=== PATIENT | male | born 1965 | race Caucasian/White ===

== ENCOUNTER 2016-06-06 10:13 | Emergency (ER) | payer OTHER ==
[~2016-06-06 10:13] MED LIST: LEVO250T PO; ULTR50TA PO; ZEST20TA8 PO; ZOFR4SOL PO; [UNRECOGNIZED DRUG - OTHER] OR
[2016-06-06] MEDS ORDERED: ONDANSETRON 4MG/2ML VIAL (J2405) As Ordered ONE (10:39)
[2016-06-06] MEDS ORDERED: MORPHINE 4 MG/ML 1ML SYRINGE As Ordered ONE (10:39)
[2016-06-06 10:51] LABS: BASO % 0.5 % (0.0-1.0); EOS # 0.1 K/mm3 (0.0-0.50); EOS % 1.1 % (0.0-3.0); LARGE UNSTAINED CELL # 0.2 K/mm3 (0.0-0.4); LARGE UNSTAINED CELL % 2.5 % (0.0-4.0); LYMPH # 1.2 K/mm3 (1.5-4.5); MEAN CORPUSCULAR HEMOGLOBIN 35.1 pg (27.0-33.0); MEAN CORPUSCULAR HGB CONC 35.2 g/dl (32.0-36.5); MEAN CORPUSCULAR VOLUME 99.9 fl (80.0-96.0); MONO # 0.7 K/mm3 (0.0-0.8); MONO % 8.8 % (0.0-5.0); NEUTROPHILS # 5.2 K/mm3 (1.8-7.7); PLATELET COUNT, AUTOMATED 378 k/mm3 (150-450); RED CELL DISTRIBUTION WIDTH 12.2 % (11.5-14.5); WHITE BLOOD COUNT 7.3 K/mm3 (4.0-10.0)
[2016-06-06 11:07] LABS: ALBUMIN/GLOBULIN RATIO 1.11 (1.00-1.93); ALKALINE PHOSPHATASE 92 U/L (45-117); ALT/SGPT 54 U/L (12-78); AMYLASE 70 U/L (25-115); ANION GAP 10 MEQ/L (8-16); AST/SGOT 52 U/L (15-37); BILIRUBIN,DIRECT < 0.1 MG/DL (0.0-0.2); BILIRUBIN,TOTAL 0.2 MG/DL (0.2-1.0); BLOOD UREA NITROGEN 6 MG/DL (7-18); CALCIUM LEVEL 8.9 MG/DL (8.5-10.1); CARBON DIOXIDE LEVEL 25 MEQ/L (21-32); CHLORIDE LEVEL 99 MEQ/L (98-107); CREATININE FOR GFR 0.78 MG/DL (0.70-1.30); GLOMERULAR FILTRATION RATE > 60.0 (>56); GLUCOSE, FASTING 88 MG/DL (70-105); SODIUM LEVEL 134 MEQ/L (136-145); TOTAL PROTEIN 7.6 GM/DL (6.4-8.2)
--- NOTE | 2016-06-06 13:23 | EDDOCDS ---
Physician Documentation [facility] Name: Jan Clayton Age: 50 yrs Sex: Male : 1965 Arrival Date: 06/06/2016 Time: 10:13 Bed I5 / M5 Private MD: Vincenzo Ramos Disposition: 06/06/16 13:03 Discharged to Home/Self Care. Impression: Other chest pain - Musculoskeletal Chest Pain, Right side, Chronic obstructive pulmonary disease, unspecified - on Chest X-ray today. - Condition is Stable. - Discharge Instructions: Chronic Obstructive Pulmonary Disease, Musculoskeletal Pain. - Prescriptions for Zanaflex 4 mg Oral Tablet - take 1 tablet by ORAL route every 8 hours As needed Will cause drowsiness, do not take while driving/operating heavy machinery.; 20 tablet. Tramadol 50 mg Oral Tablet - take 0.5 tablet by ORAL route 4 times per day MDD: 2 tabs; 10 tablet. Albuterol Sulfate 90 mcg/actuation Inhalation HFA Aerosol Inhaler - inhale 2 puff by INHALATION route every 4 hours As needed; 1 Inhaler. - Medication Reconciliation, Local Pharmacy Hours form. - Follow up: Private Physician; When: 1 - 2 days; Reason: Recheck today's complaints, Continuance of care. Follow up: Emergency Department; Reason: Worsening of conditions. - Problem is new. - Symptoms have improved. Historical: - Allergies: no known allergies; - Home Meds: 1. none - PMHx: Hypertension; chronic abdominal pain; - PSHx: Hernia repair; - Social history: Smoking status: Patient uses tobacco products, current every day smoker. No barriers to communication noted, The patient speaks fluent Nauruan, Speaks appropriately for age. - Family history: Not pertinent. - : The pt / caregiver states he / she is not on anticoagulants. Home medication list is obtained from the patient. - Exposure Risk Screening:: None identified. Vital Signs: 06/06 10:16 BP 173 / 94 LA Sitting (auto/reg); Pulse 66 LA; Resp 18 S; Temp 97.7(O); Pulse Ox 99% mt4 on R/A; Weight 67.13 kg / 148 lbs (R); Height 5 ft. 8 in. (172.72 cm) (R); Pain 8/10; 11:41 BP 150 / 86; Pulse 50; Resp 20; Temp 97.3; Pulse Ox 97% ; Pain 7/10; jam1 13:18 BP 180 / 80; Pulse 52; Resp 18; Temp 99.7(TE); Pulse Ox 99% on R/A; Pain 7/10; jf3 10:16 Body Mass Index 22.50 (67.13 kg, 172.72 cm) mt4 MDM: 10:35 NS 0.9% 1000 ml IV at bolus once ordered. ef1 10:35 Ondansetron 4 mg IVP once ordered. ef1 10:35 IV Saline Lock ordered. ef1 10:35 Undress patient appropriately for examination ordered. ef1 10:36 morphine 4 mg IVP once ordered. ef1 10:36 Amylase Ordered. EDMS 10:36 Basic Metabolic Profile Ordered. EDMS 10:36 CBC with Diff Ordered. EDMS 10:36 Lipase Ordered. EDMS 10:36 Liver Profile Ordered. EDMS 10:36 Urinalysis Ordered. EDMS 10:37 Urine Culture Ordered. EDMS 10:37 CT ABD & PELVIS: No Contrast Ordered. EDMS 10:37 NOTHING BY MOUTH+DIET ordered. EDMS 10:37 Chest, 2 View (pa\E\lat) Ordered. EDMS 10:42 RIBS-UNI W-O PA CHEST Ordered. EDMS 11:05 Financial registration complete. [facility] 11:05 [facility] Payment Agreement was scanned into [email or web address] and attached to record. mpb 11:23 Basic Metabolic Profile Reviewed. ef1 11:23 CBC with Diff Reviewed. ef1 11:23 Liver Profile Reviewed. ef1 11:23 Urinalysis Reviewed. ef1 11:23 Amylase Reviewed. ef1 11:23 Lipase Reviewed. ef1 Administered Medications: 10:58 Drug: morphine 4 mg [morphine 4 mg/mL intravenous cartridge (1 mL)] Route: IVP; Site: dls left antecubital; 11:11 Drug: NS 0.9% 1000 ml [sodium chloride 0.9 % intravenous solution] Route: IV; Rate: dls bolus; Site: left antecubital; 13:21 Follow up: IV Status: Completed infusion; IV Intake: 1000ml 3 11:12 Drug: Ondansetron 4 mg Route: IVP; Site: left antecubital; dls Signatures: Dispatcher [employer] EDMS Shanice Phan,RN RN kr3 Beronica Bay, PA-C PA-C ef1 Dara Valle RN RN ttb Kris Moreno,RN RN jf3 Supa Armas, Reg Reg mpb Radha Ruiz RN dls The chart was reviewed and I authenticate all verbal orders and agree with the evaluation and treatment provided.Corrections: (The following items were deleted from the chart) 10:42 10:38 Rib unilat W/PA CHEST ONLY+XR ordered. EDMS EDMS Attachments: 11:05 [facility] Payment Agreement mpb MTDD
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
--- NOTE | 2016-06-06 20:26 | REP ---
CT of the abdomen and pelvis performed without IV or oral contrast 06/06/2016 Indication: Trauma Comparison: CT of the pelvis 06/09/13 Findings: Lung bases are clear bilaterally. There is however hyperinflation with findings compatible with COPD. Liver, spleen, pancreas are normal . Gallbladder is contracted, without visualized stones. Adrenal glands, kidneys are within normal limits. Stomach is unremarkable. There are a few thickened loops of small bowel within the left upper quadrant may be contributed to by peristalsis. The terminal ileum and appendix are normal. Abdominal aorta is of normal course and caliber. Bladder is partially contracted, otherwise unremarkable. There is a small right inguinal hernia with slight protrusion of a single loop of small bowel into the right groin area, improved in appearance when compared with prior study. Left colon is under distended with mild mural thickening. . There is no free air or ascites. Included portions of the lumbosacral spine and bony pelvis are without fracture or displacement. There is no pelvic diastases. Hips are without fracture or dislocation. Impression 1. COPD 2. Few mildly thickened loops of small bowel in the left upper quadrant, and scattered air-fluid levels are also seen throughout the colon with mild mural thickening in the left colon . Gastroenteritis may be considered in the appropriate clinical setting. 3. No evidence of lumbosacral spine fracture displacement. Bony pelvis is without pelvic diastases or fracture. Hips are without fracture or dislocation Signed by Mabel Mclaughlin MD 06/06/2016 08:18 P
--- NOTE | 2016-06-06 21:00 | REP ---
PA and lateral chest 06/06/2016 Indication: Trauma Comparison: Chest radiograph 06/05/2013, right rib series 06/06/2016 Findings: Cardiomediastinal silhouette is normal. There is hyperinflation and flattening of diaphragms consistent with COPD. Lungs are clear bilaterally. There is no pneumothorax. Bones and soft tissues are within normal limits Impression: Hyperinflation compatible with mild COPD No acute cardiopulmonary process Signed by Mabel Mclaughlin MD 06/06/2016 08:51 P
--- NOTE | 2016-06-07 09:37 | REP ---
Right rib series 06/06/2016 Indication: Trauma Comparison: PA chest 06/06 17 Cardial mediastinal silhouette is unremarkable as visualized. There is hyperinflation consistent with COPD. The right ribs are without fracture or deformity. There is no visualized pneumothorax. Impression: No acute right rib fracture. No evidence of pneumothorax Signed by Mabel Mclaughlin MD 06/06/2016 08:22 P
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
--- NOTE | 2016-06-08 14:23 | EDDOCDS ---
Physician Documentation [facility] Name: Jan Clayton Age: 50 yrs Sex: Male : 1965 Arrival Date: 06/06/2016 Time: 10:13 Bed I5 / M5 Private MD: Vincenzo Ramos Disposition: 06/06/16 13:03 Discharged to Home/Self Care. Impression: Other chest pain - Musculoskeletal Chest Pain, Right side, Chronic obstructive pulmonary disease, unspecified - on Chest X-ray today. - Condition is Stable. - Discharge Instructions: Chronic Obstructive Pulmonary Disease, Musculoskeletal Pain. - Prescriptions for Zanaflex 4 mg Oral Tablet - take 1 tablet by ORAL route every 8 hours As needed Will cause drowsiness, do not take while driving/operating heavy machinery.; 20 tablet. Tramadol 50 mg Oral Tablet - take 0.5 tablet by ORAL route 4 times per day MDD: 2 tabs; 10 tablet. Albuterol Sulfate 90 mcg/actuation Inhalation HFA Aerosol Inhaler - inhale 2 puff by INHALATION route every 4 hours As needed; 1 Inhaler. - Medication Reconciliation, Local Pharmacy Hours form. - Follow up: Private Physician; When: 1 - 2 days; Reason: Recheck today's complaints, Continuance of care. Follow up: Emergency Department; Reason: Worsening of conditions. - Problem is new. - Symptoms have improved. Historical: - Allergies: no known allergies; - Home Meds: 1. none - PMHx: Hypertension; chronic abdominal pain; - PSHx: Hernia repair; - Social history: Smoking status: Patient uses tobacco products, current every day smoker. No barriers to communication noted, The patient speaks fluent Nepalese, Speaks appropriately for age. - Family history: Not pertinent. - : The pt / caregiver states he / she is not on anticoagulants. Home medication list is obtained from the patient. - Exposure Risk Screening:: None identified. Vital Signs: 06/06 10:16 BP 173 / 94 LA Sitting (auto/reg); Pulse 66 LA; Resp 18 S; Temp 97.7(O); Pulse Ox 99% mt4 on R/A; Weight 67.13 kg / 148 lbs (R); Height 5 ft. 8 in. (172.72 cm) (R); Pain 8/10; 11:41 BP 150 / 86; Pulse 50; Resp 20; Temp 97.3; Pulse Ox 97% ; Pain 7/10; jam1 13:18 BP 180 / 80; Pulse 52; Resp 18; Temp 99.7(TE); Pulse Ox 99% on R/A; Pain 7/10; jf3 10:16 Body Mass Index 22.50 (67.13 kg, 172.72 cm) mt4 MDM: 10:35 NS 0.9% 1000 ml IV at bolus once ordered. ef1 10:35 Ondansetron 4 mg IVP once ordered. ef1 10:35 IV Saline Lock ordered. ef1 10:35 Undress patient appropriately for examination ordered. ef1 10:36 morphine 4 mg IVP once ordered. ef1 10:36 Amylase Ordered. EDMS 10:36 Basic Metabolic Profile Ordered. EDMS 10:36 CBC with Diff Ordered. EDMS 10:36 Lipase Ordered. EDMS 10:36 Liver Profile Ordered. EDMS 10:36 Urinalysis Ordered. EDMS 10:37 Urine Culture Ordered. EDMS 10:37 CT ABD & PELVIS: No Contrast Ordered. EDMS 10:37 NOTHING BY MOUTH+DIET ordered. EDMS 10:37 Chest, 2 View (pa\E\lat) Ordered. EDMS 10:42 RIBS-UNI W-O PA CHEST Ordered. EDMS 11:05 Financial registration complete. b 11:05 [facility] Payment Agreement was scanned into [employer] and attached to record. mpb 11:23 Basic Metabolic Profile Reviewed. ef1 11:23 CBC with Diff Reviewed. ef1 11:23 Liver Profile Reviewed. ef1 11:23 Urinalysis Reviewed. ef1 11:23 Amylase Reviewed. ef1 11:23 Lipase Reviewed. ef1 19:55 T-Sheet-- Draft Copy was scanned into [employer] and attached to record. klr Administered Medications: 10:58 Drug: morphine 4 mg [morphine 4 mg/mL intravenous cartridge (1 mL)] Route: IVP; Site: dls left antecubital; 11:11 Drug: NS 0.9% 1000 ml [sodium chloride 0.9 % intravenous solution] Route: IV; Rate: dls bolus; Site: left antecubital; 13:21 Follow up: IV Status: Completed infusion; IV Intake: 1000ml 3 11:12 Drug: Ondansetron 4 mg Route: IVP; Site: left antecubital; dls Signatures: Dispatcher [employer] EDMS Shanice PhanRN RN kr3 Beronica Bay, PA-C PA-C ef1 Dara Valle RN RN ttb Kris Moreno RN RN jf3 Supa Armas, Reg Reg mpb Delmy Maloney Debra RN dls The chart was reviewed and I authenticate all verbal orders and agree with the evaluation and treatment provided.Corrections: (The following items were deleted from the chart) 10:42 10:38 Rib unilat W/PA CHEST ONLY+XR ordered. EDMS EDMS Attachments: 11:05 [facility] [place] [facility] Payment Agreement mp 19:55 T-Sheet-- Draft Copy klr Chart Complete MTDD
--- NOTE | 2016-06-08 14:23 | EDDOCDS ---
Physician Documentation [facility] Name: Jan Clayton Age: 50 yrs Sex: Male : 1965 Arrival Date: 06/06/2016 Time: 10:13 Bed I5 / M5 Private MD: Vincenzo Ramos Disposition: 06/06/16 13:03 Discharged to Home/Self Care. Impression: Other chest pain - Musculoskeletal Chest Pain, Right side, Chronic obstructive pulmonary disease, unspecified - on Chest X-ray today. - Condition is Stable. - Discharge Instructions: Chronic Obstructive Pulmonary Disease, Musculoskeletal Pain. - Prescriptions for Zanaflex 4 mg Oral Tablet - take 1 tablet by ORAL route every 8 hours As needed Will cause drowsiness, do not take while driving/operating heavy machinery.; 20 tablet. Tramadol 50 mg Oral Tablet - take 0.5 tablet by ORAL route 4 times per day MDD: 2 tabs; 10 tablet. Albuterol Sulfate 90 mcg/actuation Inhalation HFA Aerosol Inhaler - inhale 2 puff by INHALATION route every 4 hours As needed; 1 Inhaler. - Medication Reconciliation, Local Pharmacy Hours form. - Follow up: Private Physician; When: 1 - 2 days; Reason: Recheck today's complaints, Continuance of care. Follow up: Emergency Department; Reason: Worsening of conditions. - Problem is new. - Symptoms have improved. Historical: - Allergies: no known allergies; - Home Meds: 1. none - PMHx: Hypertension; chronic abdominal pain; - PSHx: Hernia repair; - Social history: Smoking status: Patient uses tobacco products, current every day smoker. No barriers to communication noted, The patient speaks fluent American, Speaks appropriately for age. - Family history: Not pertinent. - : The pt / caregiver states he / she is not on anticoagulants. Home medication list is obtained from the patient. - Exposure Risk Screening:: None identified. Vital Signs: 06/06 10:16 BP 173 / 94 LA Sitting (auto/reg); Pulse 66 LA; Resp 18 S; Temp 97.7(O); Pulse Ox 99% mt4 on R/A; Weight 67.13 kg / 148 lbs (R); Height 5 ft. 8 in. (172.72 cm) (R); Pain 8/10; 11:41 BP 150 / 86; Pulse 50; Resp 20; Temp 97.3; Pulse Ox 97% ; Pain 7/10; jam1 13:18 BP 180 / 80; Pulse 52; Resp 18; Temp 99.7(TE); Pulse Ox 99% on R/A; Pain 7/10; jf3 10:16 Body Mass Index 22.50 (67.13 kg, 172.72 cm) mt4 MDM: 10:35 NS 0.9% 1000 ml IV at bolus once ordered. ef1 10:35 Ondansetron 4 mg IVP once ordered. ef1 10:35 IV Saline Lock ordered. ef1 10:35 Undress patient appropriately for examination ordered. ef1 10:36 morphine 4 mg IVP once ordered. ef1 10:36 Amylase Ordered. EDMS 10:36 Basic Metabolic Profile Ordered. EDMS 10:36 CBC with Diff Ordered. EDMS 10:36 Lipase Ordered. EDMS 10:36 Liver Profile Ordered. EDMS 10:36 Urinalysis Ordered. EDMS 10:37 Urine Culture Ordered. EDMS 10:37 CT ABD & PELVIS: No Contrast Ordered. EDMS 10:37 NOTHING BY MOUTH+DIET ordered. EDMS 10:37 Chest, 2 View (pa\E\lat) Ordered. EDMS 10:42 RIBS-UNI W-O PA CHEST Ordered. EDMS 11:05 Financial registration complete. b 11:05 [facility] Payment Agreement was scanned into [employer] and attached to record. mpb 11:23 Basic Metabolic Profile Reviewed. ef1 11:23 CBC with Diff Reviewed. ef1 11:23 Liver Profile Reviewed. ef1 11:23 Urinalysis Reviewed. ef1 11:23 Amylase Reviewed. ef1 11:23 Lipase Reviewed. ef1 19:55 T-Sheet-- Draft Copy was scanned into [employer] and attached to record. klr Administered Medications: 10:58 Drug: morphine 4 mg [morphine 4 mg/mL intravenous cartridge (1 mL)] Route: IVP; Site: dls left antecubital; 11:11 Drug: NS 0.9% 1000 ml [sodium chloride 0.9 % intravenous solution] Route: IV; Rate: dls bolus; Site: left antecubital; 13:21 Follow up: IV Status: Completed infusion; IV Intake: 1000ml 3 11:12 Drug: Ondansetron 4 mg Route: IVP; Site: left antecubital; dls Signatures: Dispatcher [employer] EDMS Shanice PhanRN RN kr3 Beronica Bay, PA-C PA-C ef1 Dara Valle RN RN ttb Kris Moreno RN RN jf3 Supa Armas, Reg Reg mpb Delmy Maloney Debra RN dls The chart was reviewed and I authenticate all verbal orders and agree with the evaluation and treatment provided.Corrections: (The following items were deleted from the chart) 10:42 10:38 Rib unilat W/PA CHEST ONLY+XR ordered. EDMS EDMS Attachments: 11:05 [facility] Payment Agreement mp 19:55 T-Sheet-- Draft Copy klr Chart Complete MTDD
== END 2016-06-06 13:22 | disposition home or self-care (01) ==
LOC: M ED 10:13
DX: R07.89 Other chest pain (principal); J44.9 Chronic obstructive pulmonary disease, unspecified; I10 Essential (primary) hypertension; F17.210 Nicotine dependence, cigarettes, uncomplicated
CPT/HCPCS: 36415; 71020; 71100; 74176; 80048; 80076; 81001; 82150; 83690; 85025; 87086; 96361; 96374; 96375; 99284; J2405

== ENCOUNTER → 2016-08-02 | Outpatient (CLI) | payer OTHER ==
[2016-08-02 13:05] LABS: MEAN CORPUSCULAR HGB CONC 32.8 g/dl (32.0-36.5); MEAN CORPUSCULAR VOLUME 97.4 fl (80.0-96.0); RED CELL DISTRIBUTION WIDTH 12.3 % (11.5-14.5); WHITE BLOOD COUNT 8.2 K/mm3 (4.0-10.0)
[2016-08-02 13:17] LABS: ANION GAP 11 MEQ/L (8-16); BLOOD UREA NITROGEN 13 MG/DL (7-18); CALCIUM LEVEL 8.7 MG/DL (8.5-10.1); CARBON DIOXIDE LEVEL 25 MEQ/L (21-32); CHLORIDE LEVEL 97 MEQ/L (98-107); CREATININE FOR GFR 0.96 MG/DL (0.70-1.30); GLOMERULAR FILTRATION RATE > 60.0 (>56); GLUCOSE, FASTING 146 MG/DL (70-105); POTASSIUM SERUM 4.7 MEQ/L (3.5-5.1); SODIUM LEVEL 133 MEQ/L (136-145)
== END ==
LOC: M WUC 09:21
DX: Z87.11 Personal history of peptic ulcer disease (principal)

== ENCOUNTER → 2016-09-08 | Outpatient (CLI) | payer OTHER ==
[~2016-09-08] VITALS: Ht 172.7 cm; Wt 63.5 kg
[~2016-09-08] MED LIST changes: +LIDOCAINE 2% MDV 20 ML VIAL As Ordered ONE; +LISI-538 PO; +NS 1,000 ML IV SCH; +OMEP40CA2 PO; +PROPOFOL 200 MG/20 ML VIAL As Ordered ONE
--- NOTE | 2016-09-08 10:59 | ROOR ---
Patient Name: Jan Clayton Procedure Date: 09/08/2016 10:24 AM Date of : 1965 Age: 50 Room: [facility] Gender: Male Note Status: Finalized Procedure: Upper GI endoscopy Indications: Epigastric abdominal pain, Abdominal pain in the right lower quadrant, Suspected upper gastrointestinal bleeding Providers: Michael Schulz MD Referring MD: Vincenzo Ramos Do Requesting Provider: Medicines: Monitored Anesthesia Care Complications: No immediate complications. Procedure: Pre-Anesthesia Assessment: - Prior to the procedure, a History and Physical was performed, and patient medications and allergies were reviewed. The patient is competent. The risks and benefits of the procedure and the sedation options and risks were discussed with the patient. All questions were answered and informed consent was obtained. Patient identification and proposed procedure were verified by the physician, the nurse and the anesthesiologist in the endoscopy suite. Mental Status Examination: alert and oriented. Airway Examination: normal oropharyngeal airway and neck mobility. Respiratory Examination: clear to auscultation. CV Examination: normal. Prophylactic Antibiotics: The patient does not require prophylactic antibiotics. Prior Anticoagulants: The patient has taken no previous anticoagulant or antiplatelet agents. ASA Grade Assessment: III - A patient with severe systemic disease. After reviewing the risks and benefits, the patient was deemed in satisfactory condition to undergo the procedure. The anesthesia plan was to use monitored anesthesia care (MAC). Immediately prior to administration of medications, the patient was re-assessed for adequacy to receive sedatives. The heart rate, respiratory rate, oxygen saturations, blood pressure, adequacy of pulmonary ventilation, and response to care were monitored throughout the procedure. The physical status of the patient was re-assessed after the procedure. The Endoscope was introduced through the mouth, and advanced to the second part of duodenum. The upper GI endoscopy was performed with moderate difficulty due to the patient's excessive discomfort during the procedure. Successful completion of the procedure was aided by cetacaine spray given to throat. The patient tolerated the procedure poorly due to the patient's discomfort during the procedure. Findings: The examined esophagus was normal. Segmental mild inflammation with hemorrhage characterized by granularity, scattered coffee ground granules was found in the gastric body. This was biopsied with a cold forceps for Helicobacter pylori testing. Estimated blood loss was minimal. Patchy, erythema, whitish papules moderately erythematous mucosa without active bleeding and with no stigmata of bleeding was found in the duodenal bulb. This was biopsied with a cold forceps for histology. A small hiatal hernia was present. Impression: - Normal esophagus. - Chronic gastritis with hemorrhage. Biopsied. - Erythematous duodenopathy. Biopsied. Recommendation: - Follow an antireflux regimen indefinitely. - Discharge patient to home (ambulatory). - Use Prilosec (omeprazole) 40 mg PO daily indefinitely. Michael Schulz MD Michael Schulz MD 09/08/2016 10:59:08 AM This report has been signed electronically. Number of Addenda: 0 Note Initiated On: 09/08/2016 10:24 AM Estimated Blood Loss: Estimated blood loss was minimal.
[2016-09-08 11:20] VITALS: BP 196/97
== END | disposition home or self-care (01) ==
LOC: M OPP 09:57
PROVIDERS: ATTEND Surgery
DX: K29.80 Duodenitis without bleeding (principal); K26.7 Chronic duodenal ulcer without hemorrhage or perforation; K29.00 Acute gastritis without bleeding; K29.40 Chronic atrophic gastritis without bleeding; B96.81 Helicobacter pylori [H. pylori] as the cause of diseases classified elsewhere; K44.9 Diaphragmatic hernia without obstruction or gangrene; I10 Essential (primary) hypertension; M54.81 Occipital neuralgia; M47.812 Spondylosis without myelopathy or radiculopathy, cervical region; M47.816 Spondylosis without myelopathy or radiculopathy, lumbar region; F17.210 Nicotine dependence, cigarettes, uncomplicated; Z79.899 Other long term (current) drug therapy

== ENCOUNTER 2017-01-08 23:31 | Emergency (ER) | payer OTHER ==
[~2017-01-08] VITALS: Ht 171.4 cm; Wt 136.0 kg
[~2017-01-08 23:31] MED LIST changes: -LIDOCAINE 2% MDV 20 ML VIAL As Ordered ONE; -NS 1,000 ML IV SCH; -PROPOFOL 200 MG/20 ML VIAL As Ordered ONE
[2017-01-08] MEDS ORDERED: TETANUS/DIPHTHERIA TOX ADSORB ADULT 0.5ML SYR/VIAL (90714) IM ONE (23:45)
--- NOTE | 2017-01-09 01:00 | REPUSA ---
CT of the head Clinical history: trauma. Comparison: 06/09/2013. Technique: Multiple axial CT images were obtained through the head without administration of contrast . Findings: The ventricles and sulci are symmetric bilaterally. There is no evidence of acute hemorrhag e or infarct. There is no midline shift, mass effect, or extra-axial fluid collection. The osseous st ructures are unremarkable. The visualized paranasal sinuses and mastoid air cells are clear. Impression: Negative study.
[2017-01-09 02:51] VITALS: BP 116/67
== END 2017-01-09 03:16 | disposition home or self-care (01) ==
LOC: EDBD 23:31 → M ED 23:31
DX: S01.01XA Laceration without foreign body of scalp, initial encounter (principal); W19.XXXA Unspecified fall, initial encounter; Y92.099 Unspecified place in other non-institutional residence as the place of occurrence of the external cause; Y93.89 Activity, other specified; Y99.9 Unspecified external cause status

== ENCOUNTER 2017-01-16 13:59 | Emergency (ER) | payer OTHER ==
[~2017-01-16] VITALS: Ht 170.2 cm; Wt 138.0 kg
[2017-01-16 14:00] VITALS: BP 161/93
== END 2017-01-16 15:28 | disposition home or self-care (01) ==
LOC: M ED 13:59
DX: Z48.00 Encounter for change or removal of nonsurgical wound dressing (principal)

== ENCOUNTER → 2018-07-04 | Outpatient (REF) ==
--- NOTE | 2018-07-05 04:00 | REP ---
Clinical: Pain and disability. Technique: AP, lateral, open mouth views of the cervical spine. Findings: Lateral view demonstrates chronic straightening of normal lordosis along with advanced multilevel degenerative changes including osteophytosis, endplate sclerosis/heterogeneity and disc space narrowing. Findings most pronounced at C6-7 and C5-6 level. No fracture / compression injury or subluxation. Prevertebral soft tissues are normal. Open mouth view demonstrates normal C1-C2 articulation and odontoid process. Impression: Advanced multilevel degenerative changes. Findings may be slightly progressive when compared to 08/14/2015. Electronically Signed by Boo Hammer MD 07/05/2018 03:53 A
--- NOTE | 2018-07-05 04:27 | REP ---
Clinical: Pain and disability. Technique: AP, lateral, coned-down views of the lumbosacral spine. Comparison: 08/14/2015. Findings: Mild chronic 3 mm of retrolisthesis at the L3-4 and L4-5 levels is again appreciated along with anterior osteophyte formation, minimal endplate sclerosis and disc space narrowing similar to prior examination. Endplate sclerosis and moderate disc space narrowing at L5-S1 is also identified. No acute fracture / compression injury. Impression: Moderate chronic and relatively stable degenerative spondylosis at L3-4 through L5-S1. Electronically Signed by Boo Hammer MD 07/05/2018 04:18 A
== END ==
LOC: M SMT 10:16
PROVIDERS: ATTEND Internal Medicine
DX: Z02.89 Encounter for other administrative examinations (principal)

== ENCOUNTER 2022-08-27 15:42 | Emergency (ER) | payer OTHER ==
[~2022-08-27] VITALS: Ht 172.7 cm; Wt 54.5 kg
[~2022-08-27 15:42] MED LIST changes: -LISI-538 PO; +LISI20TA33 PO; -OMEP40CA2 PO; +OMEP40CA4 PO
[2022-08-27] MEDS ORDERED: DILT240C83 (16:12)
[2022-08-27] MEDS ORDERED: ELIQ5TAB (16:12)
[2022-08-27 16:52] LABS: BASO # 0.1 10^3/uL (0.0-0.2); BASO % 0.6 % (0.0-1.0); EOS % 0.2 % (0.0-3.0); HEMATOCRIT 36.8 % (42.0-52.0); HEMOGLOBIN 12.9 g/dl (13.5-17.5); LYMPH % 23.5 % (24.0-44.0); MEAN CORPUSCULAR HEMOGLOBIN 35.1 pg (27.0-33.0); MEAN CORPUSCULAR HGB CONC 35.1 g/dl (32.0-36.5); MONO # 0.6 10^3/uL (0.0-0.8); MONO % 6.8 % (2.0-8.0); NEUTROPHILS # 5.8 10^3/uL (1.5-8.5); NEUTROPHILS % 68.2 % (36.0-66.0); PLATELET COUNT, AUTOMATED 180 10^3/uL (150-450); RED BLOOD COUNT 3.68 10^6/uL (4.30-6.10); WHITE BLOOD COUNT 8.5 10^3/uL (4.0-10.0)
[2022-08-27 17:10] LABS: INR 1.23; PROTHROMBIN TIME 15.8 SECONDS (12.5-14.5)
[2022-08-27 17:12] LABS: PARTIAL THROMBOPLASTIN TIME 31.9 SECONDS (24.8-34.2)
[2022-08-27 17:20] LABS: LIPASE 31 U/L (12-53)
[2022-08-27 17:21] LABS: AMYLASE 89 U/L (30-118); CPK CREATINE PHOSPHOKINASE 662 U/L (46-171)
[2022-08-27 17:22] LABS: ALBUMIN 3.7 G/DL (3.2-5.2); ALKALINE PHOSPHATASE 119 U/L (46-116); ALT/SGPT 40 U/L (7.0-40); AST/SGOT 87 U/L (<34); BILIRUBIN,DIRECT 0.4 MG/DL (<0.4); BILIRUBIN,TOTAL 0.8 MG/DL (0.3-1.2); BLOOD UREA NITROGEN 7 MG/DL (9-23); CALCIUM LEVEL 8.1 MG/DL (8.5-10.1); CARBON DIOXIDE LEVEL 20 MMOL/L (20-31); CHLORIDE LEVEL 98 MMOL/L (98-107); CK-MB VALUE MASS 16.4 NG/ML (<3.6); CREATININE FOR GFR 0.81 MG/DL (0.70-1.30); GLOMERULAR FILTRATION RATE > 60.0 (>56); GLUCOSE, FASTING 72 MG/DL (60-100); MB/CK RELATIVE INDEX 2.47 (< OR =4); POTASSIUM SERUM 3.9 MMOL/L (3.5-5.1); SODIUM LEVEL 128 MMOL/L (136-145); TOTAL PROTEIN 6.7 G/DL (5.7-8.2)
[2022-08-27] MEDS ORDERED: NORCO, ANEXSIA 5/325MG TABLET (HYDROcodone/ACETAMINOPHEN) PO ONE (17:55)
[2022-08-27] MEDS ORDERED: NS 1,000 ML IV ONE (17:55)
[2022-08-27] MEDS ORDERED: LIDOCAINE 5% (LIDODERM) PATCH TD ONE (19:45)
[2022-08-27] MEDS ORDERED: CYCLOBENZAPRINE 5MG TABLET PO ONE (19:45)
[2022-08-27 19:56] LABS: APPEARANCE, URINE CLEAR (CLEAR); BACTERIA, URINE AUTO NEGATIVE (NEGATIVE); BILIRUBIN, URINE AUTO NEGATIVE (NEGATIVE); BLOOD, URINE BLOOD 2+ (NEGATIVE); COLOR, URINE COLORLESS (YELLOW); GLUCOSE, URINE (UA) AUTO NEGATIVE (NEGATIVE); KETONE, URINE AUTO NEGATIVE (NEGATIVE); LEUKOCYTE ESTERASE, URINE AUTO NEGATIVE (NEGATIVE); NITRITE, URINE AUTO NEGATIVE (NEGATIVE); PROTEIN, URINE AUTO NEGATIVE (NEGATIVE); RBC, URINE AUTO 0 /HPF (0-3); SPECIFIC GRAVITY URINE AUTO 1.001 (1.002-1.035); SQUAMOUS EPITHELIAL CELL UR AU 0 /HPF (0-6); UROBILINOGEN, URINE AUTO 0.2 mg/dL (0.0-2.0); WBC, URINE AUTO 0 /HPF (0-3)
[2022-08-27 20:21] LABS: AMPHETAMINES LEVEL URINE NEGATIVE (NEGATIVE); BARBITURATES URINE NEGATIVE (NEGATIVE); BENZODIAZEPINES URINE NEGATIVE (NEGATIVE); COCAINE METABOLITE URINE NEGATIVE (NEGATIVE); METHADONE URINE NEGATIVE (NEGATIVE); PHENCYCLIDINE URINE NEGATIVE (NEGATIVE)
[2022-08-27 20:22] LABS: CANNABINOIDS URINE NEGATIVE (NEGATIVE)
[2022-08-27 20:23] LABS: CK-MB VALUE MASS 33.2 NG/ML (<3.6)
[2022-08-27 20:44] LABS: OPIATES URINE POSITIVE (NEGATIVE)
[2022-08-27 20:44] LABS: MB/CK RELATIVE INDEX 2.58 (< OR =4)
[2022-08-27] MEDS ORDERED: HYDR-3713 PO (21:05)
[2022-08-27] MEDS ORDERED: CYCL-707 PO (21:05)
[2022-08-27] MEDS ORDERED: PRED20TA PO (21:08)
[2022-08-27] MEDS ORDERED: NORCO 5/325MG TABLET (HOME DOSE PACK) PO ONE (21:15)
[2022-08-27 21:21] VITALS: BP 154/90
== END 2022-08-27 21:38 | disposition home or self-care (01) ==
LOC: M ED 15:42 → EDBD 15:42 → M ED 21:38
DX: S32.020A Wedge compression fracture of second lumbar vertebra, initial encounter for closed fracture (principal); V48.1XXA Car passenger injured in noncollision transport accident in nontraffic accident, initial encounter; Y92.410 Unspecified street and highway as the place of occurrence of the external cause; R94.8 Abnormal results of function studies of other organs and systems; I10 Essential (primary) hypertension; I48.91 Unspecified atrial fibrillation; F17.210 Nicotine dependence, cigarettes, uncomplicated

== ENCOUNTER → 2022-10-01 | Outpatient (CLI) | payer OTHER ==
[~2022-10-01] MED LIST changes: +CYCL-707 PO; +DILT240C83; +ELIQ5TAB; +HYDR-3713 PO; +PRED20TA PO
== END ==
LOC: M SOG 08:14
PROVIDERS: ATTEND Orthopaedic Surgery
DX: M54.50 Low back pain, unspecified (principal); Z53.9 Procedure and treatment not carried out, unspecified reason

== ENCOUNTER → 2022-11-12 | Outpatient (CLI) | payer OTHER | LOC: M SOG 07:56 | PROVIDERS: ATTEND Orthopaedic Surgery | DX: M54.50 Low back pain, unspecified (principal); Z53.8 Procedure and treatment not carried out for other reasons ==

== ENCOUNTER → 2022-12-22 | Outpatient (CLI) | payer OTHER | LOC: M SOG 13:17 | PROVIDERS: ATTEND Orthopaedic Surgery | DX: S32.020A Wedge compression fracture of second lumbar vertebra, initial encounter for closed fracture (principal); M47.816 Spondylosis without myelopathy or radiculopathy, lumbar region; Y93.9 Activity, unspecified; Y92.9 Unspecified place or not applicable ==

== ENCOUNTER 2024-06-26 11:07 | Inpatient (IN) | payer MEDICAID, OTHER ==
[2024-06-26] VITALS (7 sets, daily range): BP systolic 114–143; BP diastolic 71–88; TEMP 96.3–98.4; O2SAT 97–100
[~2024-06-26] VITALS: Ht 165.1 cm; Wt 50.3 kg
[2024-06-26] MEDS: MULTIVITAMINS/MINERALS THERAP 1 TAB PO SCH (09:00)
[2024-06-26 11:55] LABS: BASO % 0.1 % (0.0-1.0); EOS # 0.1 10^3/uL (0.0-0.5); HEMATOCRIT 36.3 % (42.0-52.0); HEMOGLOBIN 12.5 g/dl (13.5-17.5); LYMPH # 0.6 10^3/uL (1.5-5.0); LYMPH % 4.5 % (24.0-44.0); MEAN CORPUSCULAR HEMOGLOBIN 38.5 pg (27.0-33.0); MEAN CORPUSCULAR HGB CONC 34.4 g/dl (32.0-36.5); MEAN CORPUSCULAR VOLUME 111.7 fl (80.0-96.0); MONO # 0.5 10^3/uL (0.0-0.8); MONO % 3.9 % (2.0-8.0); NEUTROPHILS # 12.3 10^3/uL (1.5-8.5); NEUTROPHILS % 88.3 % (36.0-66.0); PLATELET COUNT, AUTOMATED 195 10^3/uL (150-450); RED BLOOD COUNT 3.25 10^6/uL (4.30-6.10)
[2024-06-26 12:14] LABS: INR 1.24; PROTHROMBIN TIME 15.9 SECONDS (12.5-14.5)
[2024-06-26 12:35] LABS: ETHYL ALCOHOL (ETHANOL) < 0.003 % (0.000-0.010); LIPASE 74 U/L (12-53)
[2024-06-26 12:40] LABS: ALBUMIN 3.8 G/DL (3.2-5.2); ALKALINE PHOSPHATASE 98 U/L (40-129); ALT/SGPT 55 U/L (7.0-40); AST/SGOT 108 U/L (<34); BILIRUBIN,TOTAL 1.7 MG/DL (0.3-1.2); BLOOD UREA NITROGEN 24 MG/DL (9-23); CALCIUM LEVEL 9.5 MG/DL (8.3-10.6); CARBON DIOXIDE LEVEL < 10.0 MMOL/L (20-31); CHLORIDE LEVEL 76 MMOL/L (98-107); CK-MB VALUE MASS < 1.0 NG/ML (<3.6); CREATININE FOR GFR 1.69 MG/DL (0.70-1.30); GLOMERULAR FILTRATION RATE 44.3 (>49); GLUCOSE, FASTING 338 MG/DL (74-106); SODIUM LEVEL 133 MMOL/L (136-145); TOTAL PROTEIN 7.2 G/DL (5.7-8.2)
[2024-06-26 12:41] LABS: CPK CREATINE PHOSPHOKINASE 42 U/L (46-171); MB/CK RELATIVE INDEX 2.38 (< OR =4); POTASSIUM SERUM 2.7 MMOL/L (3.5-5.1)
[2024-06-26] MEDS ORDERED: ISOVUE-370 76% 100ML VIAL As Ordered ONE (13:01)
[2024-06-26] MEDS: [UNRECOGNIZED DRUG - OTHER] IV ONE (13:03)
[2024-06-26] MEDS: KCL 10MEQ/100ML SWI (KRUN) 10 MEQ in IV 1 EA IV ONE (13:03)
[2024-06-26] MEDS: NS 0.9% IV ONE (13:03)
[2024-06-26] MEDS: CEFEPIME HCL 2 GM in DEXTROSE 5% (D5W) ADV/MINI-BAG 50 ML IV ONE (13:03)
[2024-06-26 13:10] LABS: ABG BASE EXCESS -10.9 (-2.0-2.0); ABG HCO3 10.9 MMOL/L (22.0-26.0); ABG O2 SATURATION 97.9 % (95.0-99.0); ABG PARTIAL PRESSURE O2 127.2 mmHg (75.0-100.0); ABG STANDARD HCO3 15.9 MMOL/L. (22.0-26.0); ABG TOTAL CO2 11.5 MMOL/L (23.0-31.0); ABG pH (ARTERIAL) 7.426 UNITS (7.350-7.450)
[2024-06-26 13:13] LABS: PARTIAL THROMBOPLASTIN TIME 26.3 SECONDS (24.8-34.2)
[2024-06-26 13:46] LABS: CK-MB VALUE MASS < 1.0 NG/ML (<3.6)
[2024-06-26 13:58] LABS: CPK CREATINE PHOSPHOKINASE 65 U/L (46-171); MB/CK RELATIVE INDEX 1.53 (< OR =4)
[2024-06-26 15:15] LABS: KETONE, URINE AUTO RFX 2+ mg/dL (NEGATIVE); LEUKOCYTE ESTERASE UR AUTO RFX NEGATIVE (NEGATIVE); MUCUS, URINE RFX SMALL (NEGATIVE); NITRITE, URINE AUTO RFX NEGATIVE (NEGATIVE); RBC, URINE AUTO RFX 6 /HPF (0-3); SQUAM EPITHELIAL CELL UR AURFX 0 /HPF (0-6); WBC, URINE AUTO RFX 10 /HPF (0-3)
[2024-06-26] MEDS ORDERED: ALBUTEROL SULFATE 2.5MG/0.5ML INH NEB SOLN NEB PRN (16:30)
[2024-06-26] MEDS ORDERED: ACETAMINOPHEN 325 MG TAB PO PRN (16:40)
[2024-06-26 16:59] LABS: CALCIUM LEVEL 7.4 MG/DL (8.3-10.6); CREATININE FOR GFR 1.51 MG/DL (0.70-1.30); GLOMERULAR FILTRATION RATE 50.4 (>49); POTASSIUM SERUM 2.9 MMOL/L (3.5-5.1)
[2024-06-26] MEDS ORDERED: HOME MED LIST COMPLETE! XX SCH (17:15)
[2024-06-26 18:07] LABS: PROCALCITONIN 0.48 ng/ml
[2024-06-26] MEDS: KCL 10MEQ/100ML SWI (KRUN) 10 MEQ in IV 1 EA IV SCH ×2 (18:14→22:30)
[2024-06-26] MEDS: THIAMINE 200MG 2ML VIAL IV SCH (18:14)
[2024-06-26] MEDS ORDERED: LORazepam 2 MG TAB PO PRN (18:50)
[2024-06-26 19:14] LABS: VENOUS BASE EXCESS -6.2 (-2.0-2.0); VENOUS HCO3 18.2 MMOL/L (23.0-27.0); VENOUS O2 SATURATION 86.1 % (60.0-80.0); VENOUS PARTIAL PRESSURE CO2 32.4 mmHg (38.0-50.0); VENOUS PARTIAL PRESSURE O2 58.4 mmHg (30.0-50.0); VENOUS PH 7.367 UNITS (7.330-7.430); VENOUS STANDARD HCO3 19.2 MMOL/L; VENOUS TOTAL CO2 19.2 MMOL/L (24.0-28.0)
[2024-06-26 19:42] LABS: CALCIUM LEVEL 8.1 MG/DL (8.3-10.6); CREATININE FOR GFR 1.37 MG/DL (0.70-1.30); GLOMERULAR FILTRATION RATE 56.4 (>49); POTASSIUM SERUM 2.8 MMOL/L (3.5-5.1)
[2024-06-26] MEDS: KCL 20MEQ in NS 1000ML 1,000 ML IV SCH (20:01)
[2024-06-26] MEDS: HEPARIN SOD (PORCINE) 5000UNITS/ML 1ML VIAL/SYRINGE SC SCH (20:02)
[2024-06-26 21:34] LABS: VENOUS BASE EXCESS -4.9 (-2.0-2.0); VENOUS O2 SATURATION 93.1 % (60.0-80.0); VENOUS PARTIAL PRESSURE CO2 30.9 mmHg (38.0-50.0); VENOUS PH 7.407 UNITS (7.330-7.430); VENOUS STANDARD HCO3 20.4 MMOL/L
[2024-06-26 22:18] LABS: BLOOD UREA NITROGEN 23 MG/DL (9-23); CALCIUM LEVEL 7.5 MG/DL (8.3-10.6); CARBON DIOXIDE LEVEL 21 MMOL/L (20-31); CHLORIDE LEVEL 96 MMOL/L (98-107); CREATININE FOR GFR 1.28 MG/DL (0.70-1.30); GLOMERULAR FILTRATION RATE > 60.0 (>49); GLUCOSE, FASTING 194 MG/DL (74-106); POTASSIUM SERUM 2.9 MMOL/L (3.5-5.1); SODIUM LEVEL 137 MMOL/L (136-145)
[2024-06-27] VITALS (11 sets, daily range): BP systolic 96–144; BP diastolic 59–77; TEMP 97.7–98.4; O2SAT 95–100
[2024-06-27 04:32] LABS: VENOUS HCO3 18.7 MMOL/L (23.0-27.0); VENOUS O2 SATURATION 97.9 % (60.0-80.0); VENOUS PARTIAL PRESSURE CO2 33.8 mmHg (38.0-50.0); VENOUS PARTIAL PRESSURE O2 146.1 mmHg (30.0-50.0); VENOUS PH 7.361 UNITS (7.330-7.430); VENOUS STANDARD HCO3 19.5 MMOL/L; VENOUS TOTAL CO2 19.7 MMOL/L (24.0-28.0)
[2024-06-27 05:08] LABS: BLOOD UREA NITROGEN 21 MG/DL (9-23); CALCIUM LEVEL 7.1 MG/DL (8.3-10.6); CARBON DIOXIDE LEVEL 21 MMOL/L (20-31); CHLORIDE LEVEL 104 MMOL/L (98-107); CREATININE FOR GFR 1.11 MG/DL (0.70-1.30); GLOMERULAR FILTRATION RATE > 60.0 (>49); GLUCOSE, FASTING 104 MG/DL (74-106); POTASSIUM SERUM 3.8 MMOL/L (3.5-5.1); SODIUM LEVEL 140 MMOL/L (136-145)
[2024-06-27] MEDS ORDERED: GLUCAGON INJ 1MG VIAL SC PRN (06:15)
[2024-06-27] MEDS ORDERED: DEXTROSE 50% 50ML SYRINGE IV PRN (06:15)
[2024-06-27] MEDS ORDERED: GLUCOSE 4 GM CHEW PO PRN (06:15)
[2024-06-27] MEDS: LEVEMIR (INSULIN DETEMIR) 1 UNITS/0.01ML SC ONE (06:30)
[2024-06-27 06:58] LABS: VENOUS BASE EXCESS -5.3 (-2.0-2.0); VENOUS HCO3 19.5 MMOL/L (23.0-27.0); VENOUS O2 SATURATION 92.4 % (60.0-80.0); VENOUS PARTIAL PRESSURE CO2 34.7 mmHg (38.0-50.0); VENOUS PARTIAL PRESSURE O2 74.7 mmHg (30.0-50.0); VENOUS PH 7.367 UNITS (7.330-7.430); VENOUS TOTAL CO2 20.5 MMOL/L (24.0-28.0)
[2024-06-27 07:12] LABS: HEMATOCRIT 22.4 % (42.0-52.0); MEAN CORPUSCULAR HGB CONC 34.8 g/dl (32.0-36.5); MEAN CORPUSCULAR VOLUME 109.3 fl (80.0-96.0); PLATELET COUNT, AUTOMATED 108 10^3/uL (150-450); RED BLOOD COUNT 2.05 10^6/uL (4.30-6.10); WHITE BLOOD COUNT 9.7 10^3/uL (4.0-10.0)
[2024-06-27 07:18] LABS: HEMOGLOBIN 7.8 g/dl (13.5-17.5)
[2024-06-27] MEDS ORDERED: INSULIN LISPRO (NovoLOG) PER UNIT SC SCH ×2 (07:30→21:00)
[2024-06-27 07:41] LABS: BLOOD UREA NITROGEN 20 MG/DL (9-23); CALCIUM LEVEL 7.3 MG/DL (8.3-10.6); CARBON DIOXIDE LEVEL 21 MMOL/L (20-31); CHLORIDE LEVEL 107 MMOL/L (98-107); CREATININE FOR GFR 1.04 MG/DL (0.70-1.30); GLOMERULAR FILTRATION RATE > 60.0 (>49); GLUCOSE, FASTING 90 MG/DL (74-106); POTASSIUM SERUM 3.7 MMOL/L (3.5-5.1); SODIUM LEVEL 142 MMOL/L (136-145)
[2024-06-27 08:09] LABS: HEMATOCRIT 23.3 % (42.0-52.0); HEMOGLOBIN 8.1 g/dl (13.5-17.5); MEAN CORPUSCULAR HEMOGLOBIN 38.8 pg (27.0-33.0); MEAN CORPUSCULAR HGB CONC 34.8 g/dl (32.0-36.5); MEAN CORPUSCULAR VOLUME 111.5 fl (80.0-96.0); PLATELET COUNT, AUTOMATED 103 10^3/uL (150-450); RED BLOOD COUNT 2.09 10^6/uL (4.30-6.10); WHITE BLOOD COUNT 9.8 10^3/uL (4.0-10.0)
[2024-06-27] MEDS: FOLIC ACID 1 MG in NS 50 ML IV SCH (09:24)
[2024-06-27] MEDS: NICOTINE 7 MG/24 HR TRANSDERMAL TD SCH (09:24)
[2024-06-27 09:42] LABS: ALBUMIN 2.5 G/DL (3.2-5.2); ALKALINE PHOSPHATASE 58 U/L (40-129); ALT/SGPT 28 U/L (7.0-40); AST/SGOT 62 U/L (<34); BILIRUBIN,DIRECT 0.5 MG/DL (<0.4); BILIRUBIN,TOTAL 0.8 MG/DL (0.3-1.2); TOTAL PROTEIN 4.7 G/DL (5.7-8.2)
[2024-06-27 10:26] LABS: PHOSPHORUS LEVEL 0.8 MG/DL (2.4-5.1)
[2024-06-27 10:42] LABS: IRON (FE) 74 UG/DL (65-175); PERCENT SATURATION 43.8 % (19.7-50.0); TOTAL IRON BINDING CAPACITY 169 UG/DL (250-425)
[2024-06-27 10:45] LABS: FERRITIN 775.3 NG/ML (10.5-307.3); VITAMIN B12 LEVEL 857 PG/ML (211-911)
[2024-06-27] MEDS: SUCRALFATE SUSP 1GM/10ML UD PO SCH (11:12)
[2024-06-27] MEDS: PANTOPRAZOLE 40MG VIAL IV SCH (11:12)
[2024-06-27 11:34] LABS: MAGNESIUM LEVEL 1.5 MG/DL (1.8-2.4)
[2024-06-27 12:34] LABS: CHOLESTEROL LEVEL 104 MG/DL (<200); CHOLESTEROL RISK RATIO 2.98 (<5); HDL CHOLESTEROL 34.8 MG/DL (>40); LDL CHOLESTEROL 52.6 MG/DL (<100); NON-HDL-C 69.2 MG/DL; TRIGLYCERIDES LEVEL 83 MG/DL (<150)
[2024-06-27 12:37] LABS: FOLATE 0.73 NG/ML (>5.4)
[2024-06-27] MEDS: MAG SULF 1GM/100ML (MAG RUN) 1 GM in IV 1 EA IV SCH (12:51)
[2024-06-27 14:34] LABS: HEMATOCRIT 25.3 % (42.0-52.0); HEMOGLOBIN 8.8 g/dl (13.5-17.5); MEAN CORPUSCULAR HEMOGLOBIN 37.9 pg (27.0-33.0); MEAN CORPUSCULAR HGB CONC 34.8 g/dl (32.0-36.5); MEAN CORPUSCULAR VOLUME 109.1 fl (80.0-96.0); PLATELET COUNT, AUTOMATED 108 10^3/uL (150-450); RED BLOOD COUNT 2.32 10^6/uL (4.30-6.10); WHITE BLOOD COUNT 9.5 10^3/uL (4.0-10.0)
[2024-06-27] MEDS: SODIUM PHOSPHATE INJ 30 MMOL in D5W 500 ML IV ONE (15:19)
[2024-06-27] MEDS ORDERED: LEVEMIR (INSULIN DETEMIR) 1 UNITS/0.01ML SC SCH (21:00)
[2024-06-28 04:58] VITALS: BP 116/67; TEMP 97.6; O2SAT 100
[2024-06-28 05:23] LABS: HEMATOCRIT 21.2 % (42.0-52.0); HEMOGLOBIN 7.6 g/dl (13.5-17.5); MEAN CORPUSCULAR HEMOGLOBIN 38.4 pg (27.0-33.0); MEAN CORPUSCULAR HGB CONC 35.8 g/dl (32.0-36.5); MEAN CORPUSCULAR VOLUME 107.1 fl (80.0-96.0); PLATELET COUNT, AUTOMATED 107 10^3/uL (150-450); RED BLOOD COUNT 1.98 10^6/uL (4.30-6.10); WHITE BLOOD COUNT 6.1 10^3/uL (4.0-10.0)
[2024-06-28 05:59] LABS: ALBUMIN 2.3 G/DL (3.2-5.2); ALKALINE PHOSPHATASE 59 U/L (40-129); ALT/SGPT 24 U/L (7.0-40); AST/SGOT 55 U/L (<34); BILIRUBIN,TOTAL 0.7 MG/DL (0.3-1.2); BLOOD UREA NITROGEN 11 MG/DL (9-23); CALCIUM LEVEL 7.3 MG/DL (8.3-10.6); CARBON DIOXIDE LEVEL 27 MMOL/L (20-31); CHLORIDE LEVEL 99 MMOL/L (98-107); CREATININE FOR GFR 0.62 MG/DL (0.70-1.30); GLOMERULAR FILTRATION RATE > 60.0 (>49); GLUCOSE, FASTING 93 MG/DL (74-106); POTASSIUM SERUM 2.6 MMOL/L (3.5-5.1); SODIUM LEVEL 135 MMOL/L (136-145); TOTAL PROTEIN 4.6 G/DL (5.7-8.2)
[2024-06-28] MEDS: KCL 10MEQ/100ML SWI (KRUN) 10 MEQ in IV 1 EA IV SCH (06:42)
[2024-06-28 06:57] LABS: MAGNESIUM LEVEL 1.6 MG/DL (1.8-2.4)
[2024-06-28 08:00] VITALS: BP 109/74; TEMP 98.7; O2SAT 98
[2024-06-28] MEDS: POTASSIUM CHLORIDE 10% LIQ 20MEQ/15ML UDC PO ONE (09:31)
[2024-06-28] MEDS: THIAMINE 200MG 2ML VIAL IV SCH (09:31)
[2024-06-28 09:57] LABS: Estimated Ave Glu(eAG) 5.5 mmol/L; Hemoglobin A1c 5.1 (<5.7)
[2024-06-28 12:00] VITALS: BP 113/78; TEMP 98.8; O2SAT 98
[2024-06-28] MEDS: MAALOX 30 ML SUSP *UDC PO ONE (12:33)
[2024-06-28] MEDS: FLUBLOK(EGGFREE) TRIVAL(24-25) VACCINE PF 0.5ML SYRINGE 18YRS & OLDER IM.IMMUN ONE (12:33)
[2024-06-28] MEDS: LIDOCAINE VISCOUS 2% SOLN 15ML UDC PO ONE (12:34)
[2024-06-28] MEDS: MAG SULF 1GM/100ML (MAG RUN) 1 GM in IV 1 EA IV SCH (16:02)
[2024-06-28 16:15] VITALS: BP 108/71; TEMP 97.3; O2SAT 99
[2024-06-28] MEDS: SODIUM PHOSPHATE INJ 20 MMOL in D5W 250 ML IV ONE (18:19)
[2024-06-28 19:59] VITALS: BP 110/72; TEMP 97.7; O2SAT 98
[2024-06-28 20:32] LABS: BLOOD UREA NITROGEN 10 MG/DL (9-23); CALCIUM LEVEL 7.5 MG/DL (8.3-10.6); CARBON DIOXIDE LEVEL 25 MMOL/L (20-31); CHLORIDE LEVEL 97 MMOL/L (98-107); GLOMERULAR FILTRATION RATE > 60.0 (>49); GLUCOSE, FASTING 151 MG/DL (74-106); POTASSIUM SERUM 3.2 MMOL/L (3.5-5.1); SODIUM LEVEL 131 MMOL/L (136-145)
[2024-06-28 20:48] LABS: MONO REFLEX EBV COMP NEGATIVE (NEGATIVE)
[2024-06-29] VITALS: BP 103/62; TEMP 98; O2SAT 98
[2024-06-29 04:00] VITALS: BP 101/63; TEMP 97.7; O2SAT 98
[2024-06-29 07:02] LABS: MAGNESIUM LEVEL 1.4 MG/DL (1.8-2.4); PHOSPHORUS LEVEL 2.4 MG/DL (2.4-5.1)
[2024-06-29 07:05] LABS: HEMOGLOBIN 7.2 g/dl (13.5-17.5); MEAN CORPUSCULAR HEMOGLOBIN 38.1 pg (27.0-33.0); MEAN CORPUSCULAR HGB CONC 35.8 g/dl (32.0-36.5); MEAN CORPUSCULAR VOLUME 106.3 fl (80.0-96.0); RED BLOOD COUNT 1.89 10^6/uL (4.30-6.10)
[2024-06-29 07:06] LABS: HEMATOCRIT 20.1 % (42.0-52.0)
[2024-06-29 07:07] LABS: PLATELET COUNT, AUTOMATED 84 10^3/uL (150-450)
[2024-06-29 09:01] LABS: ALBUMIN 2.3 G/DL (3.2-5.2); ALKALINE PHOSPHATASE 58 U/L (40-129); ALT/SGPT 31 U/L (7.0-40); AST/SGOT 67 U/L (<34); BILIRUBIN,TOTAL 0.7 MG/DL (0.3-1.2); BLOOD UREA NITROGEN 7 MG/DL (9-23); CALCIUM LEVEL 7.2 MG/DL (8.3-10.6); CARBON DIOXIDE LEVEL 29 MMOL/L (20-31); CHLORIDE LEVEL 99 MMOL/L (98-107); CREATININE FOR GFR 0.54 MG/DL (0.70-1.30); GLOMERULAR FILTRATION RATE > 60.0 (>49); GLUCOSE, FASTING 95 MG/DL (74-106); POTASSIUM SERUM 2.9 MMOL/L (3.5-5.1); SODIUM LEVEL 132 MMOL/L (136-145); TOTAL PROTEIN 4.5 G/DL (5.7-8.2)
[2024-06-29] MEDS: POTASSIUM CHLORIDE 10% LIQ 20MEQ/15ML UDC PO SCH (10:35)
[2024-06-29] MEDS: MAG SULF 1GM/100ML (MAG RUN) 1 GM in IV 1 EA IV ONE (10:37)
[2024-06-29 12:00] VITALS: BP 113/80; TEMP 97.3
[2024-06-29] MEDS: MAG SULF 1GM/100ML (MAG RUN) IV ONE (12:00)
[2024-06-29] MEDS: KCL 10MEQ/100ML SWI (KRUN) IV SCH (13:16)
[2024-06-29 17:38] LABS: ACETONE/KETONE > 4.50 MMOL/L (0.02-0.27)
[2024-06-29 20:00] VITALS: BP 120/82; TEMP 96.8; O2SAT 99
[2024-06-30 04:00] VITALS: BP 122/83; TEMP 97.2; O2SAT 99
[2024-06-30 06:21] LABS: HEMOGLOBIN 7.2 g/dl (13.5-17.5); MEAN CORPUSCULAR HEMOGLOBIN 38.5 pg (27.0-33.0); RED BLOOD COUNT 1.87 10^6/uL (4.30-6.10); WHITE BLOOD COUNT 4.5 10^3/uL (4.0-10.0)
[2024-06-30 06:43] LABS: MAGNESIUM LEVEL 1.6 MG/DL (1.8-2.4); PHOSPHORUS LEVEL 1.9 MG/DL (2.4-5.1)
[2024-06-30 06:45] LABS: PLATELET COUNT, AUTOMATED 89 10^3/uL (150-450)
[2024-06-30 11:21] LABS: BLOOD UREA NITROGEN 8 MG/DL (9-23); CALCIUM LEVEL 7.2 MG/DL (8.3-10.6); CARBON DIOXIDE LEVEL 27 MMOL/L (20-31); CHLORIDE LEVEL 96 MMOL/L (98-107); CREATININE FOR GFR 0.49 MG/DL (0.70-1.30); GLOMERULAR FILTRATION RATE > 60.0 (>49); GLUCOSE, FASTING 116 MG/DL (74-106); POTASSIUM SERUM 3.6 MMOL/L (3.5-5.1); SODIUM LEVEL 132 MMOL/L (136-145)
[2024-06-30 12:00] VITALS: BP 117/81; TEMP 97.5; O2SAT 100
[2024-06-30] MEDS: KCL 10MEQ/100ML SWI (KRUN) 10 MEQ in IV 1 EA IV SCH (13:34)
[2024-06-30 19:31] VITALS: BP 110/65; TEMP 97.9; O2SAT 97
[2024-07-01 05:11] VITALS: BP 115/76; TEMP 97.5; O2SAT 98
[2024-07-01 07:37] LABS: HEMATOCRIT 22.4 % (42.0-52.0); HEMOGLOBIN 7.8 g/dl (13.5-17.5); MEAN CORPUSCULAR HEMOGLOBIN 38.2 pg (27.0-33.0); MEAN CORPUSCULAR HGB CONC 34.8 g/dl (32.0-36.5); MEAN CORPUSCULAR VOLUME 109.8 fl (80.0-96.0); PLATELET COUNT, AUTOMATED 117 10^3/uL (150-450); RED BLOOD COUNT 2.04 10^6/uL (4.30-6.10)
[2024-07-01 08:00] LABS: BLOOD UREA NITROGEN 6 MG/DL (9-23); CALCIUM LEVEL 7.5 MG/DL (8.3-10.6); CARBON DIOXIDE LEVEL 27 MMOL/L (20-31); CHLORIDE LEVEL 100 MMOL/L (98-107); CREATININE FOR GFR 0.52 MG/DL (0.70-1.30); GLOMERULAR FILTRATION RATE > 60.0 (>49); GLUCOSE, FASTING 93 MG/DL (74-106); MAGNESIUM LEVEL 1.3 MG/DL (1.8-2.4); PHOSPHORUS LEVEL 2.4 MG/DL (2.4-5.1); SODIUM LEVEL 133 MMOL/L (136-145)
[2024-07-01] MEDS: MAG SULF 1GM/100ML (MAG RUN) 1 GM in IV 1 EA IV SCH (09:24)
[2024-07-01 12:05] VITALS: BP 124/75; TEMP 97.5; O2SAT 100
[2024-07-01 19:38] VITALS: BP 127/77; TEMP 97.7; O2SAT 99
[2024-07-02 03:20] VITALS: BP 108/61; TEMP 97.7; O2SAT 98
[2024-07-02 06:44] LABS: MAGNESIUM LEVEL 1.5 MG/DL (1.8-2.4); PHOSPHORUS LEVEL 2.7 MG/DL (2.4-5.1)
[2024-07-02] MEDS ORDERED: E-Z-GAS II EFFERVESCENT PACKET (SODIUM BICARB./CITRIC ACID/SIMETHICONE) As Ordered ONE (08:06)
[2024-07-02] MEDS ORDERED: E-Z-HD 98% w/w 340GM SUSP BTL As Ordered ONE (08:06)
[2024-07-02] MEDS ORDERED: E-Z-PAQUE 96% w/w SUSP 176GM BTL As Ordered ONE (08:06)
[2024-07-02] MEDS: MAG SULF 1GM/100ML (MAG RUN) 1 GM in IV 1 EA IV SCH (10:01)
[2024-07-02 12:22] VITALS: BP 138/80; TEMP 97.7; O2SAT 100
[2024-07-02 13:47] LABS: EBV VIRAL CAPSID AG IGM < 36.00 U/mL (<36.00)
[2024-07-02 19:52] VITALS: BP 125/74; TEMP 97.7; O2SAT 95
[2024-07-03 03:47] VITALS: BP 108/71; TEMP 97.9; O2SAT 99
[2024-07-03 09:18] LABS: BLOOD UREA NITROGEN 10 MG/DL (9-23); CALCIUM LEVEL 8.1 MG/DL (8.3-10.6); CARBON DIOXIDE LEVEL 24 MMOL/L (20-31); CHLORIDE LEVEL 98 MMOL/L (98-107); CREATININE FOR GFR 0.56 MG/DL (0.70-1.30); GLOMERULAR FILTRATION RATE > 60.0 (>49); GLUCOSE, FASTING 86 MG/DL (74-106); POTASSIUM SERUM 4.2 MMOL/L (3.5-5.1); SODIUM LEVEL 131 MMOL/L (136-145)
[2024-07-03 09:20] LABS: MAGNESIUM LEVEL 1.6 MG/DL (1.8-2.4)
[2024-07-03 09:29] LABS: HEMATOCRIT 21.5 % (42.0-52.0); HEMOGLOBIN 7.4 g/dl (13.5-17.5); MEAN CORPUSCULAR HEMOGLOBIN 38.1 pg (27.0-33.0); MEAN CORPUSCULAR HGB CONC 34.4 g/dl (32.0-36.5); MEAN CORPUSCULAR VOLUME 110.8 fl (80.0-96.0); PLATELET COUNT, AUTOMATED 198 10^3/uL (150-450); RED BLOOD COUNT 1.94 10^6/uL (4.30-6.10); WHITE BLOOD COUNT 7.3 10^3/uL (4.0-10.0)
[2024-07-03 12:45] VITALS: BP 112/73; TEMP 97.9; O2SAT 99
[2024-07-03] MEDS: MAG SULF 1GM/100ML (MAG RUN) 1 GM in IV 1 EA IV SCH (13:16)
[2024-07-03 20:21] VITALS: BP 113/74; TEMP 97.9; O2SAT 99
[2024-07-03] MEDS: PANTOPRAZOLE 40MG TAB (PROTONIX) PO SCH (20:26)
[2024-07-04 04:15] VITALS: BP 117/74; TEMP 97.9; O2SAT 99
[2024-07-04] MEDS ORDERED: propofoL 200 MG/20 ML VIAL As Ordered ONE (07:13)
[2024-07-04] MEDS ORDERED: LIDOCAINE 2% 100MG/5ML SDV (FOR ANES.) As Ordered ONE (07:13)
[2024-07-04 10:16] VITALS: BP 113/71; TEMP 98.1; O2SAT 97
[2024-07-04] MEDS ORDERED: PILL CUTTER 1 EACH XX ONE (11:14)
[2024-07-04] MEDS ORDERED: fentaNYL 100 MCG/2 ML INJECTION As Ordered ONE (12:38)
[2024-07-04 13:32] VITALS: BP 123/85; TEMP 97.7; O2SAT 96
[2024-07-04 20:19] VITALS: BP 117/78; TEMP 98.1
[2024-07-05 03:12] VITALS: BP 118/77; TEMP 97.9; O2SAT 97
[2024-07-05] MEDS ORDERED: FOLI1TAB11 PO (09:46)
[2024-07-05] MEDS ORDERED: PANT40TA29 PO (09:46)
[2024-07-05] MEDS ORDERED: SUCR1ORA PO (09:46)
[2024-07-05] MEDS ORDERED: NICO7PA TD (09:46)
[2024-07-05] MEDS ORDERED: THERTAB19 PO (09:46)
[2024-07-05] MEDS ORDERED: POTA20LI16 PO (09:46)
[2024-07-05] MEDS ORDERED: MAGN400T2 PO (09:47)
[2024-07-05 12:00] VITALS: BP 115/74; TEMP 97.7
== END 2024-07-05 17:30 | disposition home health service (06) | DRG 815 ==
LOC: M ED 11:07 → EDBD 11:07 → M ED INP 16:27 → M ICU 17:27 → M MS5PR 06-28 16:10
PROVIDERS: ADMIT Internal Medicine Pulmonary Disease; ATTEND Student in an Organized Health Care Education/Training Program
PROC: 0DB78ZX Excision of Stomach, Pylorus, Via Natural or Artificial Opening Endoscopic, Diagnostic (ICD-10-PCS; principal; 2024-07-04 13:30)
DX: T73.0XXA Starvation, initial encounter (principal); E43 Unspecified severe protein-calorie malnutrition; E87.8 Other disorders of electrolyte and fluid balance, not elsewhere classified; N17.9 Acute kidney failure, unspecified; E83.42 Hypomagnesemia; D52.9 Folate deficiency anemia, unspecified; N18.30 Chronic kidney disease, stage 3 unspecified; K70.30 Alcoholic cirrhosis of liver without ascites; E86.0 Dehydration; E87.5 Hyperkalemia; E83.39 Other disorders of phosphorus metabolism; R13.10 Dysphagia, unspecified; K52.9 Noninfective gastroenteritis and colitis, unspecified; F10.10 Alcohol abuse, uncomplicated; R74.01 Elevation of levels of liver transaminase levels; K21.00 Gastro-esophageal reflux disease with esophagitis, without bleeding; K44.9 Diaphragmatic hernia without obstruction or gangrene; K31.89 Other diseases of stomach and duodenum; R11.2 Nausea with vomiting, unspecified; R91.1 Solitary pulmonary nodule; J47.9 Bronchiectasis, uncomplicated; K22.70 Barrett's esophagus without dysplasia

== ENCOUNTER 2024-07-14 09:52 | Observation (INO) | payer MEDICAID, OTHER ==
[~2024-07-14] VITALS: Ht 170.2 cm; Wt 53.9 kg
[~2024-07-14 09:52] MED LIST changes: +FOLI1TAB11 PO; +MAGN400T2 PO; +NICO7PA TD; +PANT40TA29 PO; +POTA20LI16 PO; +SUCR1ORA PO; +THERTAB19 PO
[2024-07-14 12:51] LABS: BASO % 0.5 % (0.0-1.0); EOS % 0.5 % (0.0-3.0); HEMATOCRIT 23.7 % (42.0-52.0); HEMOGLOBIN 7.9 g/dl (13.5-17.5); LYMPH # 1.8 10^3/uL (1.5-5.0); LYMPH % 23.1 % (24.0-44.0); MEAN CORPUSCULAR HEMOGLOBIN 36.1 pg (27.0-33.0); MEAN CORPUSCULAR HGB CONC 33.3 g/dl (32.0-36.5); MEAN CORPUSCULAR VOLUME 108.2 fl (80.0-96.0); MONO # 0.7 10^3/uL (0.0-0.8); MONO % 8.7 % (2.0-8.0); NEUTROPHILS # 5.2 10^3/uL (1.5-8.5); NEUTROPHILS % 66.8 % (36.0-66.0); PLATELET COUNT, AUTOMATED 392 10^3/uL (150-450); RED BLOOD COUNT 2.19 10^6/uL (4.30-6.10); WHITE BLOOD COUNT 7.7 10^3/uL (4.0-10.0)
[2024-07-14 13:04] LABS: INR 1.01; PARTIAL THROMBOPLASTIN TIME 29.4 SECONDS (24.8-34.2); PROTHROMBIN TIME 13.6 SECONDS (12.5-14.5)
[2024-07-14 13:13] LABS: ALBUMIN 2.7 G/DL (3.2-5.2); ALKALINE PHOSPHATASE 70 U/L (40-129); ALT/SGPT 22 U/L (7.0-40); AST/SGOT 29 U/L (<34); BILIRUBIN,DIRECT 0.1 MG/DL (<0.4); BILIRUBIN,TOTAL 0.3 MG/DL (0.3-1.2); BLOOD UREA NITROGEN 9 MG/DL (9-23); CALCIUM LEVEL 8.1 MG/DL (8.3-10.6); CARBON DIOXIDE LEVEL 25 MMOL/L (20-31); CHLORIDE LEVEL 99 MMOL/L (98-107); CREATININE FOR GFR 0.46 MG/DL (0.70-1.30); GLOMERULAR FILTRATION RATE > 60.0 (>49); GLUCOSE, FASTING 84 MG/DL (74-106); POTASSIUM SERUM 4.3 MMOL/L (3.5-5.1); SODIUM LEVEL 132 MMOL/L (136-145); TOTAL PROTEIN 6.2 G/DL (5.7-8.2)
[2024-07-14 13:14] LABS: CK-MB VALUE MASS < 1.0 NG/ML (<3.6)
[2024-07-14 13:17] LABS: FREE T4 1.08 NG/DL (0.89-1.76); THYROID STIMULATING HORMONE 3.163 uIU/ML (0.55-4.78)
[2024-07-14 13:21] LABS: CPK CREATINE PHOSPHOKINASE 85 U/L (46-171); MB/CK RELATIVE INDEX 1.17 (< OR =4)
[2024-07-14 14:37] LABS: MB/CK RELATIVE INDEX 1.14 (< OR =4)
[2024-07-14] MEDS ORDERED: SUCR1ORA2 PO (15:08)
[2024-07-14] MEDS ORDERED: PANT-23 PO (15:08)
[2024-07-14] MEDS ORDERED: MAGN400T35 PO (15:08)
[2024-07-14] MEDS ORDERED: FOLI1TAB11 PO (15:08)
[2024-07-14] MEDS ORDERED: HOME MED LIST COMPLETE! XX SCH (15:10)
[2024-07-14 15:25] VITALS: BP 122/82; TEMP 98.2; O2SAT 99
[2024-07-14 15:47] VITALS: BP 141/77; TEMP 98.2; O2SAT 100
[2024-07-14 16:32] VITALS: BP 138/68; TEMP 98.8; O2SAT 100
[2024-07-14 17:32] VITALS: BP 134/74; TEMP 98.2; O2SAT 98
[2024-07-14 17:33] LABS: MAGNESIUM LEVEL 1.7 MG/DL (1.8-2.4)
[2024-07-14] MEDS: FUROSEMIDE 40 MG TAB PO ONE (18:00)
[2024-07-14 18:18] LABS: SOURCE PERIPHERAL SMEAR
[2024-07-14 18:32] LABS: PERCENT SATURATION 8.8 % (19.7-50.0)
[2024-07-14 18:34] LABS: FERRITIN 299.7 NG/ML (10.5-307.3)
[2024-07-14 18:37] LABS: FOLATE 19.38 NG/ML (>5.4)
[2024-07-14] MEDS: MAG SULF 1GM/100ML (MAG RUN) 1 GM in IV 1 EA IV SCH (19:41)
[2024-07-14] MEDS: MAGNESIUM OXIDE 400MG TAB (MAG-OX) PO SCH (21:07)
[2024-07-14] MEDS: PANTOPRAZOLE 40MG TAB (PROTONIX) PO SCH (21:12)
[2024-07-14] MEDS: CETIRIZINE (ZyrTEC) 10 MG TAB PO SCH (21:12)
[2024-07-14] MEDS: SUCRALFATE SUSP 1GM/10ML UD PO SCH (21:12)
[2024-07-14 22:50] VITALS: BP 119/69; TEMP 98.6; O2SAT 98
[2024-07-15 04:01] VITALS: BP 123/71; TEMP 98.4; O2SAT 99
[2024-07-15 06:20] LABS: HEMATOCRIT 25.9 % (42.0-52.0); HEMOGLOBIN 8.9 g/dl (13.5-17.5); MEAN CORPUSCULAR HGB CONC 34.4 g/dl (32.0-36.5); PLATELET COUNT, AUTOMATED 361 10^3/uL (150-450); RED BLOOD COUNT 2.54 10^6/uL (4.30-6.10); WHITE BLOOD COUNT 6.4 10^3/uL (4.0-10.0)
[2024-07-15 06:54] LABS: BLOOD UREA NITROGEN 6 MG/DL (9-23); CALCIUM LEVEL 8.3 MG/DL (8.3-10.6); CARBON DIOXIDE LEVEL 25 MMOL/L (20-31); CHLORIDE LEVEL 101 MMOL/L (98-107); CREATININE FOR GFR 0.53 MG/DL (0.70-1.30); GLOMERULAR FILTRATION RATE > 60.0 (>49); GLUCOSE, FASTING 84 MG/DL (74-106); POTASSIUM SERUM 4.5 MMOL/L (3.5-5.1); SODIUM LEVEL 136 MMOL/L (136-145)
[2024-07-15] MEDS: FOLIC ACID 1MG TAB PO SCH (07:59)
[2024-07-15] MEDS: FUROSEMIDE 40MG/4ML VIAL IV ONE (08:00)
[2024-07-15] MEDS: ENOXAPARIN 40MG/0.4ML SYRINGE (J1650 PER 10MG) SC SCH (08:00)
[2024-07-15] MEDS: FERRIC CARBOXYMALTOSE INJ 750 MG, VIAL MATE ADAPTER 1 EACH in NS 100 ML IV ONE (08:53)
[2024-07-15 12:00] VITALS: BP 123/71; TEMP 99.1; O2SAT 99
[2024-07-15 19:23] VITALS: BP 112/64; TEMP 98.8; O2SAT 96
[2024-07-16 03:57] VITALS: BP 129/77; TEMP 99.7; O2SAT 93
[2024-07-16 07:12] LABS: BASO % 0.5 % (0.0-1.0); EOS # 0.1 10^3/uL (0.0-0.5); EOS % 0.8 % (0.0-3.0); HEMATOCRIT 26.1 % (42.0-52.0); HEMOGLOBIN 8.6 g/dl (13.5-17.5); LYMPH # 1.7 10^3/uL (1.5-5.0); LYMPH % 21.5 % (24.0-44.0); MEAN CORPUSCULAR HEMOGLOBIN 33.7 pg (27.0-33.0); MEAN CORPUSCULAR VOLUME 102.4 fl (80.0-96.0); MONO # 1.1 10^3/uL (0.0-0.8); MONO % 13.8 % (2.0-8.0); NEUTROPHILS # 4.9 10^3/uL (1.5-8.5); NEUTROPHILS % 62.6 % (36.0-66.0); PLATELET COUNT, AUTOMATED 379 10^3/uL (150-450); RED BLOOD COUNT 2.55 10^6/uL (4.30-6.10); WHITE BLOOD COUNT 7.8 10^3/uL (4.0-10.0)
[2024-07-16 07:34] LABS: BLOOD UREA NITROGEN 9 MG/DL (9-23); CALCIUM LEVEL 8.4 MG/DL (8.3-10.6); CARBON DIOXIDE LEVEL 27 MMOL/L (20-31); CHLORIDE LEVEL 101 MMOL/L (98-107); CREATININE FOR GFR 0.63 MG/DL (0.70-1.30); GLOMERULAR FILTRATION RATE > 60.0 (>49); GLUCOSE, FASTING 92 MG/DL (74-106); POTASSIUM SERUM 4.5 MMOL/L (3.5-5.1); SODIUM LEVEL 134 MMOL/L (136-145)
[2024-07-16] MEDS: ACETAMINOPHEN 325 MG TAB PO PRN (08:28)
[2024-07-16 10:50] VITALS: BP 110/67; TEMP 98.8; O2SAT 98
[2024-07-16 20:07] VITALS: BP 132/75; TEMP 98.6; O2SAT 95
[2024-07-17 04:24] VITALS: BP 117/69; TEMP 98.8; O2SAT 95
[2024-07-17] MEDS ORDERED: CETI10TA PO (10:55)
== END 2024-07-17 12:00 | disposition home or self-care (01) ==
LOC: M ED 09:52 → M ED INP 09:53 → M MS5PR 22:39
PROVIDERS: ADMIT Internal Medicine; ATTEND Student in an Organized Health Care Education/Training Program
DX: M79.89 Other specified soft tissue disorders (principal); I87.2 Venous insufficiency (chronic) (peripheral); L29.9 Pruritus, unspecified; D53.9 Nutritional anemia, unspecified; D52.9 Folate deficiency anemia, unspecified; T73.0XXA Starvation, initial encounter; E43 Unspecified severe protein-calorie malnutrition; Z68.1 Body mass index [BMI] 19.9 or less, adult; N17.9 Acute kidney failure, unspecified; F10.10 Alcohol abuse, uncomplicated; R06.02 Shortness of breath; N18.30 Chronic kidney disease, stage 3 unspecified; K20.90 Esophagitis, unspecified without bleeding; R13.10 Dysphagia, unspecified; K76.0 Fatty (change of) liver, not elsewhere classified; R91.1 Solitary pulmonary nodule; J47.9 Bronchiectasis, uncomplicated; F17.200 Nicotine dependence, unspecified, uncomplicated; Z79.899 Other long term (current) drug therapy
CPT/HCPCS: 36415; 36430; 71046; 80048; 80076; 80503; 82550; 82553; 82607; 82728; 82746; 83550; 83735; 83880; 84439; 84443; 84484; 85025; 85027; 85046; 85610; 85730; 86850; 86900; 86901; 86920; 93005; 93041; 93306; 93970; 94760; 96372; 96374; 96375; 96376; 99285; J1439; J1650; J1940; J3475; P9016

== ENCOUNTER → 2024-12-26 | Outpatient (CLI) | payer OTHER ==
[~2024-12-26] MED LIST changes: +CETI10TA PO; +MAGN400T35 PO; +PANT-23 PO; +SUCR1ORA20 PO; +THERTAB52 PO
== END ==
LOC: M PLAIMG 06:48
PROVIDERS: ATTEND Physician Assistant
DX: M51.360 Other intervertebral disc degeneration, lumbar region with discogenic back pain only (principal); M47.896 Other spondylosis, lumbar region; M50.30 Other cervical disc degeneration, unspecified cervical region; M47.892 Other spondylosis, cervical region; M48.02 Spinal stenosis, cervical region; M48.061 Spinal stenosis, lumbar region without neurogenic claudication